=== PATIENT | male | born 1980 | race Caucasian/White ===

== ENCOUNTER 2020-01-31 19:27 | Observation (INO) ==
[2020-01-31] MEDS ORDERED: Isovue-370 500 ML BOTTLE IVP ONE (19:39)
[2020-01-31 19:57] LABS: Hematocrit 47.4 % (37.5-50.1); Hemoglobin 15.9 g/dL (12.9-16.9); Mean Corpuscular HGB Conc 33.5 g/dL (31.6-35.5); Mean Corpuscular Hemoglobin 29.4 pg (28.0-33.3); Mean Corpuscular Volume 87.8 fL (83.0-100.0); Mean Platelet Volume 10.9 fL (9.4-12.4); Platelet Count 225 K/mcL (140-400); Red Cell Distribution Width 11.8 % (11.5-14.5); White Blood Count 8.4 K/mcL (4.3-11.1)
[2020-01-31 20:10] LABS: Activated Partial Thrombo Time 31.5 Seconds (26.0-36.0)
[2020-01-31 20:45] LABS: BUN/Creatinine Ratio 14 (6-26); Blood Urea Nitrogen 16 mg/dL (6-20); Calcium 9.3 mg/dL (8.6-10.3); Carbon Dioxide 28 mEq/L (23-29); Chloride 103 mEq/L (98-107); Ethanol < 10 mg/dL (Less than 10); Glucose 98 mg/dL (70-105); Magnesium 1.8 mg/dL (1.6-2.6); Osmolality,Calculated 283 (280-300); Potassium 4.3 mEq/L (3.5-5.1); Sodium 136 mEq/L (136-145); eGFR For African Americans > 60 (> 60); eGFR For Non-African Americans > 60 (> 60)
[2020-01-31] MEDS ORDERED: Acetaminophen 325 MG TABLET PO PRN (22:41)
[2020-01-31] MEDS ORDERED: Naloxone 0.4 MG/ML INJ IVP PRN (22:41)
[2020-01-31] MEDS ORDERED: Perflutren Lipid Microsphere 1.3 ML in 0.9 % Sodium Chloride 8.7 ML IVP PRN (22:52)
[2020-01-31] MEDS ORDERED: Famotidine 20 MG/2 ML VIAL IVP ONE (23:59)
[2020-02-01 03:00] LABS: Hemoglobin 15.2 g/dL (12.9-16.9); Mean Corpuscular HGB Conc 33.8 g/dL (31.6-35.5); Mean Corpuscular Hemoglobin 30.1 pg (28.0-33.3); Mean Corpuscular Volume 89.1 fL (83.0-100.0); Mean Platelet Volume 10.5 fL (9.4-12.4); Platelet Count 218 K/mcL (140-400); Red Blood Count 5.05 M/mcL (4.19-5.50); Red Cell Distribution Width 11.7 % (11.5-14.5); White Blood Count 10.4 K/mcL (4.3-11.1)
[2020-02-01 03:20] LABS: BUN/Creatinine Ratio 13 (6-26); Blood Urea Nitrogen 14 mg/dL (6-20); Calcium 9.4 mg/dL (8.6-10.3); Carbon Dioxide 25 mEq/L (23-29); Chloride 103 mEq/L (98-107); Chol/HDL Ratio 5.7 (0-4.9); Cholesterol 206 mg/dL (< 200); Glucose 108 mg/dL (70-105); HDL Cholesterol 36 mg/dL (40-59); LDL Cholesterol,Calculated 150 mg/dL (< 100); Osmolality,Calculated 283 (280-300); Potassium 3.8 mEq/L (3.5-5.1); Sodium 136 mEq/L (136-145); Triglycerides 100 mg/dL (< 150); eGFR For African Americans > 60 (> 60); eGFR For Non-African Americans > 60 (> 60)
[2020-02-01 03:23] LABS: Troponin I < 0.03 ng/mL (< 0.04)
[2020-02-01 03:37] LABS: Thyroid Stimulating Hormone 1.139 mcIU/mL (0.340-5.600)
[2020-02-01] MEDS ORDERED: *HR* LORazepam 0.5 MG TABLET PO PRN (09:55)
[2020-02-01] MEDS ORDERED: Finasteride 5 MG TABLET PO SCH (10:00)
[2020-02-01] MEDS ORDERED: Orphenadrine 100 MG TABLET.ER PO SCH (10:00)
[2020-02-01 11:13] VITALS: BP 142/88
[2020-02-01 13:20] LABS: Estimated Average Glucose 128 mg/dl
== END 2020-02-01 14:02 | disposition home or self-care (01) ==
LOC: 3BNU 19:27 → EMEROOARM 19:27 → SUATTDRO 21:36 → 3BNU 22:43
PROVIDERS: ADMIT Internal Medicine; ATTEND Internal Medicine